=== PATIENT | female | born 1965 | race Caucasian/White ===

== ENCOUNTER 2022-02-22 10:07 | Day surgery (SDC) | payer OTHER ==
[~2022-02-22] VITALS: Ht 165.1 cm; Wt 86.5 kg
[2022-02-22] MEDS ORDERED: OMEP20ER (10:22)
[2022-02-22] MEDS ORDERED: LISI10 PO (10:22)
== END 2022-02-22 12:09 | disposition home or self-care (01) ==
LOC: ORSCSDS 10:07
PROVIDERS: Student in an Organized Health Care Education/Training Program
PROC: 0DB58ZX Excision of Esophagus, Via Natural or Artificial Opening Endoscopic, Diagnostic (ICD-10-PCS; principal; 2022-02-22 11:30)
PROC: 0DB68ZX Excision of Stomach, Via Natural or Artificial Opening Endoscopic, Diagnostic (ICD-10-PCS; principal; 2022-02-22 11:30)
DX: R13.10 Dysphagia, unspecified (principal); K20.90 Esophagitis, unspecified without bleeding; K22.70 Barrett's esophagus without dysplasia; K44.9 Diaphragmatic hernia without obstruction or gangrene; K29.70 Gastritis, unspecified, without bleeding; K21.9 Gastro-esophageal reflux disease without esophagitis; I10 Essential (primary) hypertension; Z79.899 Other long term (current) drug therapy
CPT/HCPCS: 88305; 88312; 88342; J2250; J2704; J7120

== ENCOUNTER → 2023-12-04 | Outpatient (CLI) | payer OTHER ==
[~2023-12-04] MED LIST: LISI10 PO; OMEP20ER
[2023-12-12 13:19] LABS: HPV HIGH RISK BY TMA Not Detected; HPV SOURCE Cervical
== END ==
LOC: LAB SHORT 18:22 → LAB 18:22
PROVIDERS: Nurse Practitioner Family
DX: Z01.419 Encounter for gynecological examination (general) (routine) without abnormal findings (principal)
CPT/HCPCS: 87624; G0123